=== PATIENT | male | born 1945 | race Caucasian/White ===

== ENCOUNTER 2020-06-10 09:15 | Emergency (ER) | payer MEDICARE, OTHER ==
[2020-06-10 10:44] LABS: HEMOGLOBIN 14.4 gm/dl (14.0-17.5); RED BLOOD COUNT 4.94 M/UL (4.20-5.50)
[2020-06-10 10:54] LABS: BUN/CREATININE RATIO 12 (0-10)
== END 2020-06-10 12:20 | disposition home or self-care (01) ==
LOC: ER1 09:15
PROVIDERS: Emergency Medicine
DX: R33.9 Retention of urine, unspecified (principal); I10 Essential (primary) hypertension; J44.9 Chronic obstructive pulmonary disease, unspecified; Z90.89 Acquired absence of other organs; Z85.038 Personal history of other malignant neoplasm of large intestine
CPT/HCPCS: 51702; 80048; 81001; 85025; 99283

== ENCOUNTER 2020-06-23 01:05 | Emergency (ER) | payer MEDICARE, OTHER ==
[2020-06-23 02:13] LABS: BUN/CREATININE RATIO 13 (0-10)
== END 2020-06-23 03:00 | disposition home or self-care (01) ==
LOC: ER1 01:05
PROVIDERS: Student in an Organized Health Care Education/Training Program
DX: R93.3 Abnormal findings on diagnostic imaging of other parts of digestive tract (principal); J44.9 Chronic obstructive pulmonary disease, unspecified; I10 Essential (primary) hypertension; Z88.6 Allergy status to analgesic agent; Z90.89 Acquired absence of other organs
CPT/HCPCS: 51702; 80053; 81001; 99283

== ENCOUNTER 2020-06-25 18:03 | Emergency (ER) | payer MEDICARE, OTHER | END 2020-06-25 19:37 | disposition home or self-care (01) | LOC: ER1 18:03 | DX: Z46.6 Encounter for fitting and adjustment of urinary device (principal); I10 Essential (primary) hypertension; Z88.6 Allergy status to analgesic agent; Z88.8 Allergy status to other drugs, medicaments and biological substances | CPT/HCPCS: 99284 ==